=== PATIENT | male | born 1955 | race African-American/Black ===

== ENCOUNTER 2020-06-04 16:40 | Emergency (ER) | payer BC, OTHER ==
[2020-06-04] MEDS ORDERED: TETANUS & DIPHTHERIA TOX,ADULT 0.5 ML VIAL ONE (17:34)
--- NOTE | 2020-06-04 17:37 | RAD REPORT ---
EXAM DESCRIPTION: CT - [id number] - 06/04/2020 5:17 pm CLINICAL HISTORY: fall, head injury COMPARISON: No comparisons TECHNIQUE: Axial 5 mm thick images of the head were obtained. Axial 2 mm thick images of the cervic al spine were obtained with sagittal and coronal reconstruction images generated and reviewed. All CT scans are performed using dose optimization technique as appropriate and may include automated exposure control or mA/KV adjustment according to patient size. FINDINGS: No intracranial hemorrhage, mass, edema or acute intracranial finding. No acute cortical i nfarction. No cortical edema or sulcal effacement. No measurable atrophy seen. Ventricles are normal. Minimal chronic ischemic changes suspected in the cerebral white matter. No extra-axial fluid collec tions. Mastoid air cells and paranasal sinuses are clear. No globe or orbit abnormality seen. Cervical body height and alignment are normal. Prominent degenerative endplate changes with disc spac e narrowing C5-6 and C6-7. Facet joint degenerative change present. Uncovertebral joint hypertrophy c hanges are present with right greater than left bony foraminal encroachment at C5-6 and C6-7. No frac ture or acute bony abnormality. Central canal detail is inherently limited. No paraspinal mass or hematoma. IMPRESSION: No hemorrhage, edema or acute CT Head finding. Cervical spine degenerative change as detailed. No acute finding.
[2020-06-04] MEDS ORDERED: DERMABOND SKIN ADHESIVE TOP ONE (18:27)
[2020-06-04] MEDS ORDERED: LIDOCAINE 1% W/EPI 1:100,000 MDV 20 ML VIAL ONE (18:48)
--- NOTE | 2020-06-04 19:01 | EDPHYS ---
Physician Documentation [facility] Name: Jair Guadarrama Age: 64 yrs Sex: Male : 1955 Arrival Date: 06/04/2020 Time: 16:47 Bed 14 Private MD: ED Physician Jose Luis Vasquez HPI: 06/04 17:05 This 64 yrs old Black Male presents to ER via EMS with complaints of Head Injury. jmm 17:05 Details of fall: The patient fell from an upright position. Onset: The symptoms/episode jmm began/occurred acutely, just prior to arrival. Associated injuries: The patient sustained injury to the head. This is a 64 year old male with no chronic medical condition that presents to the ED with complaints of left sided facial pain beginning just prior to arrival. Patient states he slipped in the garage. Unknown loc . Historical: - Allergies: 16:52 No Known Allergies; jd3 - Home Meds: 16:52 None [Active]; jd3 - PMHx: 16:52 None; jd3 - PSHx: 16:52 None; jd3 - Immunization history:: Adult Immunizations up to date. - Social history:: Smoking status: Patient reports the use of cigarette tobacco products, denies chronic smoking, but will smoke occasionally. ROS: 17:05 Constitutional: Negative for fever, chills, and weight loss, Cardiovascular: Negative jmm for chest pain, palpitations, and edema, Respiratory: Negative for shortness of breath, cough, wheezing, and pleuritic chest pain. 17:05 Skin: Positive for laceration(s). 17:05 Neuro: Positive for headache. 17:05 All other systems are negative. Exam: 17:05 Constitutional: This is a well developed, well nourished patient who is awake, alert, jmm and in no acute distress. 17:05 Neck: Trachea midline, Supple Chest/axilla: Normal chest wall appearance and motion. Cardiovascular: Regular rate and rhythm. No edema appreciated Respiratory: Normal respirations, no respiratory distress appreciated Abdomen/GI: Non distended, soft Back: Normal ROM 17:05 Head/face: 1 cm laceration noted to the left orbital ridge. 17:05 Skin: 1 cm laceration noted to the left orbital region of the face. 17:05 Neuro: Orientation: is normal, Mentation: is normal. 17:05 Psych: Behavior/mood is pleasant, cooperative. Vital Signs: 16:52 BP 125 / 80; Pulse 64; Resp 17 S; Temp 98.5(O); Pulse Ox 100% on R/A; Weight 104.33 kg jd3 (R); Height 5 ft. 11 in. (180.34 cm) (R); Pain 5/10; 18:00 BP 120 / 80; Pulse 60; Resp 18; Pulse Ox 97% on R/A; zb 16:52 Body Mass Index 32.08 (104.33 kg, 180.34 cm) jd3 Laceration: 18:57 Wound Repair of 1cm ( 0.4in ) subcutaneous laceration to outer aspect of left eyebrow. jmm Distal neuro/vascular/tendon intact. Anesthesia: Local anesthetic administered with 2 mls of 1% lidocaine. Wound prep: Simple cleansing with hibiclenz by me. Skin closed with 2 5-0 Prolene using simple sutures and sterile technique. Patient tolerated well. MDM: 16:57 Patient medically screened. [facility] 18:57 Data reviewed: vital signs, nurses notes. Counseling: I had a detailed discussion with melvin the patient and/or guardian regarding: the historical points, exam findings, and any diagnostic results supporting the discharge/admit diagnosis, radiology results, the need for outpatient follow up, to return to the emergency department if symptoms worsen or persist or if there are any questions or concerns that arise at home. ED course: Patient given head injury and wound infection return precautions. patient understood and agrees with the plan of care. . 06/04 17:04 Order name: CT Head C Spine; Complete Time: 17:46 [facility] 06/04 17:46 Order name: Dermabond; Complete Time: 18:14 [facility] Administered Medications: 17:27 Drug: Tetanus-Diphtheria Toxoid Adult 0.5 ml {Operational Trainer: [employer] Exp: zb 10/23/2021. Lot #: [id number]. } Route: IM; Site: right deltoid; 19:22 Follow up: Response: No adverse reaction zb Disposition: 06/05 07:13 Co-signature as Attending Physician, Jose Luis Vasquez MD I agree with the assessment and kdr plan of care. Disposition: 06/04/20 19:00 Discharged to Home. Impression: Facial Laceration, Head Injury. - Condition is Stable. - Discharge Instructions: Head Injury, Adult, Facial Laceration. - Medication Reconciliation Form, Thank You Letter, Antibiotic Education, Prescription Opioid Use form. - Follow up: Private Physician; When: 5 - 6 days; Reason: Recheck today's complaints, Continuance of care, Staple/Suture removal, Re-evaluation by your physician. Signatures: Dispatcher [employer] EDMS Jose Luis Vasquez MD MD kdr Mickail, Joel, PA PA jmm Davies, Jonathon, RN RN jDalia Rosario RN RN zb Corrections: (The following items were deleted from the chart) 06/04 19:27 19:00 06/04/2020 19:00 Discharged to Home. Impression: Facial Laceration; Head Injury. zb Condition is Stable. Forms are Medication Reconciliation Form, Thank You Letter, Antibiotic Education, Prescription Opioid Use. Follow up: Private Physician; When: 5 - 6 days; Reason: Recheck today's complaints, Continuance of care, Staple/Suture removal, Re-evaluation by your physician. melvin
--- NOTE | 2020-06-04 19:01 | ER ---
Nurse's Notes [facility] Name: Jair Guadarrama Age: 64 yrs Sex: Male : 1955 Arrival Date: 06/04/2020 Time: 16:47 Bed 14 Private MD: Diagnosis: Facial Laceration;Head Injury Presentation: 06/04 16:48 Chief complaint: EMS states: "The pt is reporting that he slipped and fell in his jd3 garage. no LOC. reports a couple of small lacerations near his left eye due to his glasses he thinks. other than a headache the pt is denying any other discomfort at this time.". Coronavirus screen: At this time, the client does not indicate any symptoms associated with coronavirus-19. Ebola Screen: Patient negative for fever greater than or equal to 101.5 degrees Fahrenheit, and additional compatible Ebola Virus Disease symptoms. Initial Sepsis Screen: Does the patient meet any 2 criteria? No. Patient's initial sepsis screen is negative. Does the patient have a suspected source of infection? No. Patient's initial sepsis screen is negative. Risk Assessment: Do you want to hurt yourself or someone else? Patient reports no desire to harm self or others. Onset of symptoms was June 04, 2020. 16:48 Method Of Arrival: EMS: [facility] jd3 16:48 Acuity: BAYLEE 3 jd3 Historical: - Allergies: 16:52 No Known Allergies; jd3 - Home Meds: 16:52 None [Active]; jd3 - PMHx: 16:52 None; jd3 - PSHx: 16:52 None; jd3 - Immunization history:: Adult Immunizations up to date. - Social history:: Smoking status: Patient reports the use of cigarette tobacco products, denies chronic smoking, but will smoke occasionally. Screenin:20 Abuse screen: Denies threats or abuse. Denies injuries from another. Nutritional zb screening: No deficits noted. Tuberculosis screening: No symptoms or risk factors identified. Fall Risk None identified. Assessment: 17:20 General: Appears in no apparent distress. comfortable, well groomed, Behavior is calm, zb cooperative, appropriate for age. Pain: Complains of pain in left side of forehead, left temporal area and left islam Quality of pain is described as aching, Pain began suddenly, 2 hours ago. Is continuous. Neuro: Level of Consciousness is awake, alert, obeys commands, Oriented to person, place, time, situation, Moves all extremities. Speech is normal, Facial symmetry appears normal, pt has PERRLA Left eye. 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 pt denies any visual changes . Reports headache Denies weakness blurred vision dizziness, numbness. Cardiovascular: Heart tones S1 S2 present Capillary refill < 3 seconds in bilateral fingers. Respiratory: Airway is patent Respiratory effort is even, unlabored, Respiratory pattern is regular. GI: Abdomen is flat, non-distended. : No signs and/or symptoms were reported regarding the genitourinary system. EENT: No signs and/or symptoms were reported regarding the EENT system. Derm: Skin is healthy with good turgor, Wound noted outer aspect of left eyebrow Wound is laceration. Musculoskeletal: Circulation, motion, and sensation intact. Range of motion: intact in all extremities. Injury Description: Laceration sustained to outer aspect of left eyebrow is clean, not bleeding, was sustained 1-2 hours ago. no active bleeding noted at this time. 18:20 Reassessment: Patient appears in no apparent distress at this time. Patient and/or zb family updated on plan of care and expected duration. Pain level reassessed. Patient is alert, oriented x 3, equal unlabored respirations, skin warm/dry/pink. family remains at bedside. 18:35 Reassessment: ECP at bedside. zb 19:24 Reassessment: Patient appears in no apparent distress at this time. Patient and/or zb family updated on plan of care and expected duration. Pain level reassessed. Patient is alert, oriented x 3, equal unlabored respirations, skin warm/dry/pink. d/c instruction given. pt and family PVU. Vital Signs: 16:52 BP 125 / 80; Pulse 64; Resp 17 S; Temp 98.5(O); Pulse Ox 100% on R/A; Weight 104.33 kg jd3 (R); Height 5 ft. 11 in. (180.34 cm) (R); Pain 5/10; 18:00 BP 120 / 80; Pulse 60; Resp 18; Pulse Ox 97% on R/A; zb 16:52 Body Mass Index 32.08 (104.33 kg, 180.34 cm) [facility] ED Course: 16:47 Patient arrived in ED. jd3 16:51 Triage completed. jd3 16:53 Arm band placed on. jd3 16:55 Rahul Lewis PA is PHCP. [facility] 16:55 Jose Luis Vasquez MD is Attending Physician. [facility] 16:56 Dalia Whyte, RN is Primary Nurse. zb 17:17 CT Head C Spine In Process Unspecified. EDMS 17:42 Patient has correct armband on for positive identification. Bed in low position. Call zb light in reach. Side rails up X 1. Door closed. Noise minimized. 19:26 No provider procedures requiring assistance completed. Patient did not have IV access zb during this emergency room visit. Administered Medications: 17:27 Drug: Tetanus-Diphtheria Toxoid Adult 0.5 ml {Tar Leveler: [employer]. Exp: zb 10/23/2021. Lot #: [id number]. } Route: IM; Site: right deltoid; 19:22 Follow up: Response: No adverse reaction zb Outcome: 19:00 Discharge ordered by . [facility] 19:27 Discharged to home ambulatory. zb 19:27 Condition: stable 19:27 Discharge instructions given to patient, family, Instructed on discharge instructions, follow up and referral plans. Demonstrated understanding of instructions, follow-up care, wound care. 19:27 Patient left the ED. zb Signatures: Dispatcher [employer] EDNE Rahul Lweis PA PA jmm Davies, Jonathon, RN RN Dalia Rosario RN RN zmari
== END 2020-06-04 19:27 | disposition home or self-care (01) ==
LOC: ER 16:40
PROC: 0JQ10ZZ Repair Face Subcutaneous Tissue and Fascia, Open Approach (ICD-10-PCS; principal; 2020-06-04)
DX: S01.112A Laceration without foreign body of left eyelid and periocular area, initial encounter (principal); W01.0XXA Fall on same level from slipping, tripping and stumbling without subsequent striking against object, initial encounter; Y93.9 Activity, unspecified; Y92.89 Other specified places as the place of occurrence of the external cause; Z23 Encounter for immunization; F17.210 Nicotine dependence, cigarettes, uncomplicated
CPT/HCPCS: 70450; 72125; 90471; 90714; 99283